=== PATIENT | female | born 1960 | race Caucasian/White ===

== ENCOUNTER 2018-10-13 22:40 | Observation (INO) | payer MEDICARE, MEDICAID ==
[2018-10-14 00:33] LABS: CKMB 4.1 ng/mL (0-6.6)
[2018-10-14 03:12] LABS: Troponin I 0.063 ng/mL (< 0.028)
[2018-10-14 04:12] VITALS: BMI 30.1
[2018-10-14 06:40] LABS: Troponin I 0.062 ng/mL (< 0.028)
[2018-10-14] MEDS ORDERED: Acetaminophen 325 MG TAB PO PRN (08:42)
[2018-10-14] MEDS ORDERED: Acetaminophen 650 MG Suppository PR PRN (08:42)
[2018-10-14] MEDS ORDERED: Sodium Chloride 0.9% 1,000 ML IV SCH (08:45)
[2018-10-14] MEDS ORDERED: Levothyroxine Sodium 50 MCG TAB PO SCH (09:00)
[2018-10-14] MEDS ORDERED: Aspirin Chewable 81 MG TAB PO SCH (09:00)
[2018-10-14] MEDS ORDERED: VALPROIC ACID 125 MG PO SCH (09:00)
[2018-10-14 10:19] LABS: Mean Corpuscular HGB CONC 32.6 g/dL (32.0-36.0); Mean Corpuscular Hemoglobin 33.9 pg (27.0-31.0); Mean Platelet Volume 9.3 fL (7.4-10.4); Platelet Count 91 thou/uL (130-400); RBC Distribution Width 14.2 % (11.5-14.5); Red Blood Cell (RBC) Count 4.73 mill/uL (4.20-5.40)
[2018-10-14 10:33] LABS: #Eosinphils 0.2 thou/uL (0.0-0.7); #Lymphocytes 1.3 thou/uL (1.20-3.40); #Monocytes 0.4 thou/uL (0.11-0.59); %Basophils 0.6 % (0.0-1.0); %Eosinophils 4.5 % (0.0-10.0); %Lymphocytes 25.1 % (21.0-51.0); %Monocytes 8.6 % (0.0-10.0); %Neutrophils 61.1 % (42.0-75.0); MDiff Complete? YES; Macrocytosis SLIGHT = 6-15 cells (100X) (0-5/hpf); Platelet Morphology Comment Appears Decreased; Polychromasia SLIGHT = 2-3 cells (100X) (0-2/hpf)
[2018-10-14 10:34] LABS: Anion Gap 11 mmol/L (10-20); BUN (Urea Nitrogen) 21 mg/dL (9.8-20.1); Calc. Creatinine Clearance 57 mL/min (70-130); Calcium 8.9 mg/dL (7.8-10.44); Carbon Dioxide 28 mmol/L (22-29); Chloride 109 mmol/L (98-107); Estimated GFR-MDRD 48; Glucose 99 mg/dL (70-105); Magnesium 2.2 mg/dL (1.6-2.6); Potassium 4.1 mmol/L (3.5-5.1); Sodium 144 mmol/L (136-145)
[2018-10-14] MEDS ORDERED: Valproate Sodium 250 mg/5 ml UD Cup PO SCH ×3 (11:00→21:00)
[2018-10-14] MEDS ORDERED: Levothyroxine Sodium 125 MCG TAB PO SCH (11:30)
[2018-10-14 12:00] LABS: CK (CPK) 140 U/L (29-168); Valproic Acid (Depakene) Less than 12.5 ug/mL (50.0-100.0)
[2018-10-14 12:24] LABS: Lactic Acid 1.9 mmol/L (0.5-2.2)
[2018-10-14 15:41] VITALS: BP 105/59; TEMP 98.5
--- NOTE | 2018-10-14 16:11 | SS ---
DATE OF ADMISSION: 10/14/2018 DATE OF DISCHARGE: 10/14/2018 This is MARISSA Nelson dictating a report for Carroll Loving MD. REASON FOR ADMISSION: Altered mental status. HOSPITAL COURSE: Ms. Flores is a 58-year-old woman, who has been brought her from the alf with a history of Down syndrome, who is noncommunicative at baseline and according to her family, was brought into the emergency department due to altered mental status. Per the family, she did not have any lethargy or loss of consciousness. No episodes of unresponsiveness or fevers. She has been in her usual state of health; however, the family feels it is possible she is being taking care of the new nurse, whose is not aware of her uncommunicative state at baseline. Since presenting to the ED, she has not exhibited any signs of distress. She has not had any clinical signs of infection. She has undergone laboratory studies, which were unremarkable except for mildly elevated troponins. Serial troponins done in the ER seemed to be stable and possibly associated with her chronic kidney disease. The family do confirm she was diagnosed with renal insufficiency many years ago and advised not to take anti-inflammatory such as naproxen. The patient had an ECG done in the ER, which showed sinus bradycardia with a heart rate of 56. A chest x-ray was done showing stable chronic lung changes. Urinalysis also done are negative. Her vital signs have remained stable throughout her hospital stay. She does have a history of hypothyroidism and on high dose of levothyroxine 250 mcg daily, therefore thyroid function studies were checked. She missed her valproic acid yesterday evening and this morning and when the valproic acid checked with morning labs showed a level less than 12.5. This may be due to the missed doses. Therefore, it is recommended to repeat the levels in 3 to 4 days. The patient has been seen and evaluated by Dr. Loving, who agrees with plans for discharge home today. Given the fact that she is at baseline, without complaints and without any signs or symptoms of underlying infection with unremarkable restorations. Family is very happy with plans for discharge home. PAST MEDICAL HISTORY: 1. Down's. 2. Mitral valve prolapse. 3. Hypothyroidism: 4. Chronic renal insufficiency. 5. Gastric ulcer. 6. Hearing loss. 7. GERD. 8. Osteoarthritis. PAST SURGICAL HISTORY: None. SOCIAL HISTORY: The patient is noncommunicative at baseline. She lives at a long-term care facility. Denies any alcohol use or illicit drug use. No history of smoking. PHYSICAL EXAMINATION: GENERAL: The patient appears comfortable and is resting. No acute distress. She smiles and giggles at times but is noncommunicative. VITAL SIGNS: Temperature 97.5, pulse of 57, respirations 18, O2 sat 99% by nasal cannula, and blood pressure 100/68. HEENT: Normocephalic and atraumatic. Pupils are equal, round, and reactive to light. Sclerae are without icterus. Oropharynx clear. NECK: Supple. No lymphadenopathy. LUNGS: Clear bilaterally. CARDIAC: Regular rhythm. ABDOMEN: Soft. No apparent tenderness. No guarding or rigidity. EXTREMITIES: With hyperpigmentation in bilateral lower legs, right worse than the left, with evidence of stasis. No edema. There is an anterior tibial wound on the right anterior lower leg. No signs of cellulitis or infection. Clear wound dressing in place. NEUROLOGIC: Alert and smiling at times, responding to verbal stimuli, but not able to communicate. LABORATORY DATA: White blood count 5.9, hemoglobin 16, hematocrit 49.2, and platelets . Sodium 144, potassium 4.1, chloride 109, BUN 21, creatinine 1.15, GFR 48, and lactic acid 1.9. CK-MB 4.1. BNP 617.1. Free T4 of 0.89. TSH . Valproic acid less than 12.5. LFTs done on initial presentation unremarkable with normal lipase. IMAGING DATA: Chest x-ray done on 10/13/2018, stable chronic lung changes with linear interstitial changes at the bases. No new intrathoracic process present. PROCEDURES: None. DISCHARGE MEDICATIONS: The patient to resume normal home medications. No new medications started. CONDITION: Stable at discharge. DIET: The patient passed dysplasia screening at bedside and may resume her on heart healthy pureed diet. ACTIVITY: As per baseline. FOLLOWUP: The patient to be seen by her primary care physician within 1 week. She will require repeat laboratory studies to ensure renal function not worsened and to recheck valproic acid and ensure within therapeutic range. PCP to monitor and manage her hypothyroidism. Wound care to continue managing her right anterior tibial wound. DISPOSITION: The patient is medically cleared for discharge back to alf today on 10/14/2018. The patient was seen by Dr. Dr. Loving, who agrees with the plan of care as described above. Job ID: [id number]
[2018-10-15] MEDS ORDERED: Levothyroxine Sodium 125 MCG TAB PO SCH (06:00)
[2018-10-15] MEDS ORDERED: Levothyroxine Sodium 50 MCG TAB PO SCH (06:00)
[2018-10-15] MEDS ORDERED: Levothyroxine Sodium 100 MCG TAB PO SCH (06:00)
[2018-10-15] MEDS ORDERED: Non-Formulary Item 1 EACH (Levothyroxine Sodium [Synthroid] 200 MCG) PO SCH (07:30)
== END 2018-10-14 17:08 ==
LOC: ERS 22:40 → 2SE 10-14 02:56
PROVIDERS: ADMIT Internal Medicine; ATTEND Internal Medicine
DX: R41.82 Altered mental status, unspecified (principal); Q90.9 Down syndrome, unspecified; E03.9 Hypothyroidism, unspecified; I34.1 Nonrheumatic mitral (valve) prolapse; N18.9 Chronic kidney disease, unspecified; K21.9 Gastro-esophageal reflux disease without esophagitis; M19.90 Unspecified osteoarthritis, unspecified site; Z79.82 Long term (current) use of aspirin; Z79.899 Other long term (current) drug therapy; Z88.6 Allergy status to analgesic agent
CPT/HCPCS: 80048; 80164; 82550; 82553; 83605; 83735; 83880; 84439; 84443; 84484 ×3; 85025; 93005; 99285; G0378 ×2; 36415

== ENCOUNTER 2018-11-23 17:30 | Inpatient (IN) | payer MEDICARE, MEDICAID ==
[~2018-11-23 17:30] MED LIST: ISOVUE-370 76%-LOCM 1 ML ONE
[2018-11-23] MEDS ORDERED: Clopidogrel Bisulfate 75 MG TAB ONE (17:47)
--- NOTE | 2018-11-23 20:30 | CT ---
CTA CHEST WITH CONTRAST: 11/23/18 Axial tomograms obtained through the chest following a pulmonary angio protocol with multiplanar thomas nstruction and 3D post processing. INDICATIONS: New onset CHF. Hypotension and low O2 saturation. Assess for pulmonary embolus. FINDINGS: Pulmonary arteries are adequately opacified. There is no evidence of pulmonary embolus. Thoracic aort a is unremarkable. There is small right pleural effusion with right basilar atelectasis. Cardiomegaly and mild vascular congestion. Hazy ground glass alveolar opacity throughout both lungs suggests mild edema pattern. Mediastinum otherwise unremarkable. IMPRESSION: 1. No evidence of pulmonary embolus. 2. Right pleural effusion and right basilar atelectasis. 3. Cardiomegaly with vascular congestion. Diffuse ground glass opacity bilaterally suggests mild edema. POS: SHASHANKH
[2018-11-23] MEDS ORDERED: Senokot S 8.6-50 MG TAB PO PRN (21:37)
[2018-11-23] MEDS ORDERED: Non-Formulary Item 1 EACH (Ranitidine Hcl [Acid Reducer] 150 MG) PO PRN (21:39)
[2018-11-24 00:36] VITALS: BMI 28.7
--- NOTE | 2018-11-24 04:17 | HP ---
CHIEF COMPLAINT: Possible transient hypotension versus hypoxia. HISTORY OF PRESENT ILLNESS: The patient is a 58-year-old female with a history of Down's, who lives in a senior care and is nonverbal at baseline, who presented to the hospital with multiple symptoms, possible hypotension versus hypoxia. However, upon reviewing the ER records, she was not really hypotensive. Her baseline is normally in the 90s to 100 systolic and she was never below 95% on room air. According to the paperwork, it was noted that the patient recently was treated with pneumonia. She did have a chest x-ray that was done on 11/22, the reading indicated bilateral interstitial inflammatory changes. At that time, I did not see CBC that was performed with this x-ray. The patient is unable to provide me any information. There is no family around her. Her sister had left and unable to provide any history. I will try and reach her at her cellphone number. PAST MEDICAL HISTORY: 1. The patient has history of Down's. 2. Mitral valve prolapse. 3. Hypothyroidism. 4. Chronic renal insufficiency. 5. Gastric ulcers. 6. Hearing loss. 7. GERD. 8. Osteoarthritis. PAST SURGICAL HISTORY: Denies. This is per documentation. ALLERGIES: ALLERGIC TO IBUPROFEN AND NAPROXEN. MEDICATIONS: 1. She is on levothyroxine daily. 2. She is also on Ativan 0.5 daily p.r.n. 3. MiraLAX 17 g daily. 4. Ranitidine 150 p.o. daily. 5. Valproic acid 125 at noon and 250 q.p.m. 6. She is on 81 mg of aspirin. 7. Tylenol 650 as needed. SOCIAL HISTORY: She is currently unable to give me any details. However, according to the nursing staff, she is currently a full code per the sister. No history of alcohol, drug, or smoking history. This is per documentation. REVIEW OF SYSTEMS: Unable to perform. The patient is unable to provide that for me. PHYSICAL EXAMINATION: VITAL SIGNS: Are as of the following; temperature of 97.7, pulse 73, respirations 16, oxygen saturation 94% on room air, and her blood pressure is 105/59. GENERAL: She is awake, alert, unable to verbalize. HEENT: Normocephalic and atraumatic. No lymphadenopathy noted. CV: S1 and S2 present. No murmurs, rubs, or gallops. LUNGS: She has mild crackles to bilateral lower lung bases. ABDOMEN: Soft and bowel sounds are present x2. EXTREMITIES: She does have a small decubitus to her right and left heel and she does have some atrophic changes to her lower extremity. NEUROLOGIC: Neurovascular paul, unsure if the patient is able to walk. The patient does move her upper extremities without any issues and her lower extremities. SKIN: As I mentioned, she does have some decubitus to her bilateral heels. LABORATORY DATA: WBCs of 9.2, hemoglobin of 12.8, hematocrit of 39.8, and platelets of 175. Chemistry; sodium of 133, potassium of 4.4, BUN of 21, and creatinine 1.23. Her BNP was 1199. Her TSH was 0.061. Troponin was negative. DIAGNOSTIC DATA: She did have a CTA, which did not indicate any acute pneumonia. It just indicated some mild congestion, cardiomegaly, and vascular congestion. Diffuse ground-glass opacities suggesting mild edema and some atelectasis. She also had a CT brain, which did not indicate any acute processes; however, did indicate clinically correlation of normal-pressure hydrocephalus. ASSESSMENT AND PLAN: The patient is a very pleasant 58-year-old female, who comes into the hospital with multiple complaints. 1. Possible mild congestive heart failure, unknown type. The patient has never had an echocardiogram. I will order an echocardiogram. Chest CT scan does indicate vascular congestion and I will go ahead and start her on some Lasix 40 mg daily. I do not see any signs of pneumonia. She does not have an elevated white count and the patient currently is afebrile. She did receive Levaquin and vancomycin. I will check a procalcitonin level on her. We will continue to monitor. 2. Mild acute kidney injury. It appears to be the patient's baseline. It seems that patient most likely has chronic kidney disease. We will continue to monitor. May consider getting a renal ultrasound if needed if her creatinine worsens. 3. History of seizure disorders. We will continue her valproic acid. I will also check her valproic level in the morning. 4. History of hypothyroidism. Her TSH was 0.0631 and her free T4 appeared to be 2.19. Her levothyroxine from daily due to her low TSH. 5. Mild elevated troponins. Her troponin was mildly elevated at 0.040; however, that trended down. This could be secondary to some congestion. We will continue to monitor. Unable to assess if the patient is having some chest pain. 6. Again, the patient initially presented and was treated for pneumonia. However, I do not see any signs of pneumonia, especially with her CAT scan not showing any pulmonary infiltrates nor does she have a white count. Further history to be obtained from the patient's sister. However, at this time, I will hold off on her antibiotics and treat her for possible heart failure and also get an echocardiogram. Job ID: [id number]
[2018-11-24 05:58] LABS: Anion Gap 12 mmol/L (10-20); BUN (Urea Nitrogen) 17 mg/dL (9.8-20.1); Calc. Creatinine Clearance 63 mL/min (70-130); Calcium 8.2 mg/dL (7.8-10.44); Carbon Dioxide 25 mmol/L (22-29); Chloride 102 mmol/L (98-107); Estimated GFR-MDRD 55; Glucose 90 mg/dL (70-105); Sodium 135 mmol/L (136-145)
[2018-11-24] MEDS ORDERED: Levothyroxine Sodium 50 MCG TAB PO SCH (06:00)
[2018-11-24] MEDS ORDERED: Levothyroxine Sodium 25 MCG TAB PO SCH (06:00)
[2018-11-24] MEDS ORDERED: Levothyroxine Sodium 125 MCG TAB PO SCH (06:00)
[2018-11-24 06:09] LABS: Troponin I 0.028 ng/mL (< 0.028)
[2018-11-24 06:29] LABS: #Basophils 0.1 thou/uL (0.0-0.2); #Eosinphils 0.1 thou/uL (0.0-0.7); #Lymphocytes 0.7 thou/uL (1.20-3.40); #Monocytes 0.9 thou/uL (0.11-0.59); #Neutrophils 5.8 thou/uL (1.40-6.50); %Basophils 0.7 % (0.0-1.0); %Lymphocytes 9.4 % (21.0-51.0); %Monocytes 11.5 % (0.0-10.0); %Neutrophils 76.4 % (42.0-75.0); Hemoglobin 12.6 g/dL (12.0-16.0); Mean Corpuscular HGB CONC 32.2 g/dL (32.0-36.0); Mean Corpuscular Hemoglobin 34.2 pg (27.0-31.0); Mean Platelet Volume 8.6 fL (7.4-10.4); Platelet Count 165 thou/uL (130-400); RBC Distribution Width 13.7 % (11.5-14.5); Red Blood Cell (RBC) Count 3.69 mill/uL (4.20-5.40); White Blood Cell (WBC) Count 7.6 thou/uL (4.8-10.8)
[2018-11-24] MEDS ORDERED: LEVOTHYROXINE SODIUM PO SCH (07:30)
[2018-11-24] MEDS ORDERED: Furosemide 40 MG/4 ML VIAL SLOW IVP SCH (09:00)
[2018-11-24] MEDS ORDERED: Enoxaparin Sodium 40 MG/0.4 ML SYRINGE SC SCH (09:00)
[2018-11-24] MEDS: Polyethylene Glycol 3350 17 GM Packet PO SCH (09:04)
[2018-11-24] MEDS: Heparin 5,000 UNITS/ML VIAL SC SCH ×3 (09:09→21:31)
--- NOTE | 2018-11-24 10:58 | PDOC.PN ---
- Subjective Encounter Start Date: 11/24/18 Encounter Start Time: 07:30 -: old records requested/rev Patient seen and examined. No overnight events, pt is unable to provide any history, - Objective Resuscitation Status - Order Detail: 11/23/18 23:28 Resuscitation Status Routine Resuscitation Status: FULL: Full Resuscitation MAR Reviewed: Yes Vital Signs & Weight: Vital Signs (12 hours) Temp Pulse Resp BP Pulse Ox 11/24/18 07:40 94 L 11/24/18 07:33 97.8 F 84 16 94/50 L 94 L 11/24/18 04:00 97.5 F L 74 16 91/43 L 96 11/24/18 00:00 97.7 F 73 16 76/48 L 94 L Weight Weight 147 lb I&O: 11/23/18 11/24/18 11/25/18 06:59 06:59 06:59 Output Total 350 Balance -350 Result Diagrams: 11/24/18 05:19 11/24/18 05:19 Radiology Reviewed by me: Yes (chest xray and CTA reviewed) EKG Reviewed by me: Yes (nsr) Phys Exam - Physical Examination Constitutional: NAD HEENT: PERRLA, sclera anicteric dry MM Neck: no JVD, supple Respiratory: no wheezing, no rhonchi coarse sound+ Cardiovascular: RRR, no significant murmur, no rub Gastrointestinal: soft, non-tender, no distention, positive bowel sounds Musculoskeletal: no edema, pulses present chronic skin changes Lymphatic: no nodes Skin: no rash, normal turgor Dx/Plan (1) GIBSON (acute kidney injury) Code(s): N17.9 - ACUTE KIDNEY FAILURE, UNSPECIFIED Status: Acute (2) Elevated d-dimer Code(s): R79.89 - OTHER SPECIFIED ABNORMAL FINDINGS OF BLOOD CHEMISTRY Status : Acute Comment: with negative CTA chest, no PE (3) Elevated troponin Code(s): R74.8 - ABNORMAL LEVELS OF OTHER SERUM ENZYMES Status: Acute Comment: likely related with demand ischemia (4) New onset of congestive heart failure Code(s): I50.9 - HEART FAILURE, UNSPECIFIED Status: Acute Comment: suspecting diastolic, with pulmonary congestion, elevated BNP and troponin (5) Down's syndrome Code(s): Q90.9 - DOWN SYNDROME, UNSPECIFIED Status: Chronic Comment: with mental retardation (6) Hypothyroidism Code(s): E03.9 - HYPOTHYROIDISM, UNSPECIFIED Status: Chronic Comment: with current itrogenic hyperthyroidism (7) Macrocytosis Code(s): D75.89 - OTHER SPECIFIED DISEASES OF BLOOD AND BLOOD-FORMING ORGANS Status: Chronic Comment: without anemia (8) Seizure disorder Code(s): G40.909 - EPILEPSY, UNSP, NOT INTRACTABLE, WITHOUT STATUS EPILEPTICUS Status: Chronic - Plan cont current plan of care, plan discussed w/ family, continue antibiotics, speech therapy * echo will be done to determine type of CHF * I spoke with sister and updated plan * add rocephin * hold levothyroixine for now * medication reviewed as below * symptomatic treatment * repeat labs tomorrow * monitor vitals. Review of Systems - Review of Systems Other: unable to review due to mental retardation - Medications/Allergies Allergies/Adverse Reactions: Allergies Allergy/AdvReac Type Severity Reaction Status Date / Time ibuprofen [From Motrin] Allergy Verified 10/14/18 08:25 naproxen Allergy Verified 10/14/18 08:25 Medications: Current Medications Acetaminophen (Tylenol) 650 mg PO Q4H PRN PRN Reason: Headache/Fever/Mild Pain (1-3) Albuterol/Ipratropium (Duoneb) 3 ml NEB D1TI-GC PRN PRN Reason: SOB &/or Wheezing Aspirin (Aspirin Chewable) 81 mg PO DAILY OLEKSANDR Famotidine (Pepcid) 20 mg PO DAILYPRN PRN PRN Reason: Dyspepsia Furosemide (Lasix) 40 mg SLOW IVP DAILY [facility] Last Admin: 11/24/18 09:09 Dose: 40 mg Heparin Sodium (Porcine) (Heparin) 5,000 units SC TID [facility] Last Admin: 11/24/18 09:09 Dose: 5,000 units Lorazepam (Ativan) 0.5 mg PO DAILYPRN PRN PRN Reason: Anxiety Polyethylene Glycol (Miralax) 17 gm PO DAILY [facility] Last Admin: 11/24/18 09:04 Dose: Not Given Senna/Docusate Sodium (Senokot S) 2 tab PO BIDPRN PRN PRN Reason: Constipation Valproic Acid (Depakene Liquid) 125 mg PO 1200 OLEKSANDR Valproic Acid (Depakene Liquid) 250 mg PO QPM [facility]
[2018-11-24] MEDS: cefTRIAXone\\ROCEPHIN 1 GM in Sodium Chloride 0.9% 100 ML IVPB SCH (12:45)
[2018-11-24] MEDS: Famotidine 20 MG TAB PO PRN (12:57)
[2018-11-24] MEDS: Valproate Sodium 250 mg/5 ml UD Cup PO SCH ×2 (12:57→21:40)
[2018-11-24] MEDS: Aspirin Chewable 81 MG TAB PO SCH (12:57)
[2018-11-24] MEDS: Acetaminophen 325 MG TAB PO PRN (17:16)
[2018-11-24] MEDS: Lorazepam 0.5 MG TAB PO PRN (17:16)
[2018-11-25 05:23] LABS: #Eosinphils 0.1 thou/uL (0.0-0.7); #Lymphocytes 1.3 thou/uL (1.20-3.40); #Monocytes 0.5 thou/uL (0.11-0.59); #Neutrophils 2.8 thou/uL (1.40-6.50); %Basophils 0.5 % (0.0-1.0); %Eosinophils 2.9 % (0.0-10.0); %Lymphocytes 26.7 % (21.0-51.0); %Monocytes 10.3 % (0.0-10.0); %Neutrophils 59.6 % (42.0-75.0); Hemoglobin 13.2 g/dL (12.0-16.0); Mean Corpuscular HGB CONC 32.6 g/dL (32.0-36.0); Mean Corpuscular Hemoglobin 33.9 pg (27.0-31.0); Mean Platelet Volume 8.8 fL (7.4-10.4); Platelet Count 161 thou/uL (130-400); RBC Distribution Width 13.7 % (11.5-14.5); Red Blood Cell (RBC) Count 3.89 mill/uL (4.20-5.40); White Blood Cell (WBC) Count 4.7 thou/uL (4.8-10.8)
[2018-11-25 05:42] LABS: Anion Gap 13 mmol/L (10-20); BUN (Urea Nitrogen) 17 mg/dL (9.8-20.1); Calc. Creatinine Clearance 60 mL/min (70-130); Calcium 8.3 mg/dL (7.8-10.44); Carbon Dioxide 24 mmol/L (22-29); Chloride 103 mmol/L (98-107); Estimated GFR-MDRD 53; Glucose 86 mg/dL (70-105); Potassium 3.8 mmol/L (3.5-5.1); Sodium 136 mmol/L (136-145); Uric Acid 8.7 mg/dL (2.6-6.0)
[2018-11-25] MEDS: Acetaminophen 325 MG TAB PO PRN ×2 (06:28→21:55)
[2018-11-25 08:10] LABS: Anion Gap 13 mmol/L (10-20); BUN (Urea Nitrogen) 18 mg/dL (9.8-20.1); Calc. Creatinine Clearance 55 mL/min (70-130); Calcium 8.7 mg/dL (7.8-10.44); Carbon Dioxide 29 mmol/L (22-29); Chloride 101 mmol/L (98-107); Estimated GFR-MDRD 48; Glucose 95 mg/dL (70-105); Potassium 3.8 mmol/L (3.5-5.1); Sodium 139 mmol/L (136-145)
[2018-11-25] MEDS: Polyethylene Glycol 3350 17 GM Packet PO SCH (08:54)
[2018-11-25] MEDS: Aspirin Chewable 81 MG TAB PO SCH (08:59)
[2018-11-25] MEDS ORDERED: Furosemide 20 MG/2 ML VIAL SLOW IVP SCH (09:00)
[2018-11-25] MEDS: Heparin 5,000 UNITS/ML VIAL SC SCH ×3 (09:02→21:55)
[2018-11-25] MEDS: cefTRIAXone\\ROCEPHIN 1 GM in Sodium Chloride 0.9% 100 ML IVPB SCH (12:37)
[2018-11-25] MEDS: Famotidine 20 MG TAB PO PRN (12:38)
[2018-11-25] MEDS: Valproate Sodium 250 mg/5 ml UD Cup PO SCH ×2 (12:41→21:55)
--- NOTE | 2018-11-25 13:00 | PDOC.PN ---
- Subjective Encounter Start Date: 11/25/18 Encounter Start Time: 12:54 Patient seen and examined, family at bedside, no new issues. - Objective Resuscitation Status - Order Detail: 11/23/18 23:28 Resuscitation Status Routine Resuscitation Status: DNAR: NO Resuscitation Discussed with: Sister Vital Signs & Weight: Vital Signs (12 hours) Temp Pulse Resp BP Pulse Ox 11/25/18 11:47 99.3 F 73 17 84/79 L 96 11/25/18 07:46 98 F 82 17 111/75 98 11/25/18 04:00 98.0 F 78 19 101/56 L 92 L 11/25/18 02:18 92 L Weight Admit Weight 147 lb Weight 147 lb I&O: 11/24/18 11/25/18 11/26/18 06:59 06:59 06:59 Output Total 350 1750 Balance -350 -1750 Result Diagrams: 11/25/18 04:46 11/25/18 07:34 Phys Exam - Physical Examination Constitutional: NAD HEENT: PERRLA, moist MMs Neck: no nodes, no JVD, supple Respiratory: no wheezing, no rales, no rhonchi gurgling sound when she coughs Cardiovascular: RRR, no rub systolic murmur Gastrointestinal: soft, non-tender, no distention Musculoskeletal: no edema, pulses present Dx/Plan (1) GIBSON (acute kidney injury) Code(s): N17.9 - ACUTE KIDNEY FAILURE, UNSPECIFIED Status: Acute (2) New onset of congestive heart failure Code(s): I50.9 - HEART FAILURE, UNSPECIFIED Status: Acute Comment: suspecting diastolic, with pulmonary congestion, elevated BNP and troponin (3) Down's syndrome Code(s): Q90.9 - DOWN SYNDROME, UNSPECIFIED Status: Chronic Comment: with mental retardation (4) Hypothyroidism Code(s): E03.9 - HYPOTHYROIDISM, UNSPECIFIED Status: Chronic Comment: with current itrogenic hyperthyroidism (5) Seizure disorder Code(s): G40.909 - EPILEPSY, UNSP, NOT INTRACTABLE, WITHOUT STATUS EPILEPTICUS Status: Chronic - Plan * patient not eating, overall prognosis appears poor if she does not resume oral diet * PEG tube placement options discussed, I do not believe she would be a good candidate for a PEG as she is likely to pull the tube out * family agrees, they stated that they'll talk amongst themselves and pursue hospice care after discussing, patient is a DNR * the patient had a drop of BP to SBP in 70s, will bolus 250cc for now, SBP was 90s after 250cc bolus, will DC lasix for now * repeat CXR in AM * poor prognosis * case and plan d/w patient's family at length, they understood and agreed with this plan.
[2018-11-25] MEDS: Lorazepam 0.5 MG TAB PO PRN (21:56)
[2018-11-26 04:51] LABS: #Basophils 0.1 thou/uL (0.0-0.2); #Eosinphils 0.2 thou/uL (0.0-0.7); #Lymphocytes 1.3 thou/uL (1.20-3.40); #Monocytes 0.4 thou/uL (0.11-0.59); %Basophils 1.4 % (0.0-1.0); %Eosinophils 4.9 % (0.0-10.0); %Lymphocytes 32.6 % (21.0-51.0); %Monocytes 10.4 % (0.0-10.0); %Neutrophils 50.7 % (42.0-75.0); Mean Corpuscular HGB CONC 32.8 g/dL (32.0-36.0); Mean Corpuscular Hemoglobin 33.9 pg (27.0-31.0); Mean Platelet Volume 8.7 fL (7.4-10.4); Platelet Count 158 thou/uL (130-400); RBC Distribution Width 13.5 % (11.5-14.5); Red Blood Cell (RBC) Count 3.84 mill/uL (4.20-5.40)
[2018-11-26 05:08] LABS: Anion Gap 12 mmol/L (10-20); BUN (Urea Nitrogen) 17 mg/dL (9.8-20.1); Calc. Creatinine Clearance 64 mL/min (70-130); Calcium 8.2 mg/dL (7.8-10.44); Carbon Dioxide 27 mmol/L (22-29); Chloride 102 mmol/L (98-107); Estimated GFR-MDRD 56; Glucose 91 mg/dL (70-105); Potassium 3.3 mmol/L (3.5-5.1); Sodium 138 mmol/L (136-145)
--- NOTE | 2018-11-26 09:31 | RAD ---
CHEST 1 VIEW: HISTORY: Cough and shortness of breath. COMPARISON: 10/13/2018. FINDINGS: Portable semiupright chest demonstrates an enlarged cardiac silhouette. The pulmonary vessels are sl ightly prominent. A small right-sided effusion is suspected. No pneumothorax. Patchy interstitial opacities due to edema or infiltrate. IMPRESSION: 1. Interstitial prominence due to edema or infiltrate. Continued surveillance. 2. Congestive heart failure. POS: OFF
[2018-11-26] MEDS: Heparin 5,000 UNITS/ML VIAL SC SCH ×3 (10:15→20:43)
[2018-11-26] MEDS: Polyethylene Glycol 3350 17 GM Packet PO SCH (10:16)
[2018-11-26] MEDS: Aspirin Chewable 81 MG TAB PO SCH (10:16)
[2018-11-26] MEDS: Furosemide 20 MG TAB PO SCH ×2 (10:39→11:51)
[2018-11-26] MEDS: cefTRIAXone\\ROCEPHIN 1 GM in Sodium Chloride 0.9% 100 ML IVPB SCH (12:14)
[2018-11-26] MEDS: Valproate Sodium 250 mg/5 ml UD Cup PO SCH ×2 (12:24→20:43)
--- NOTE | 2018-11-26 13:45 | PDOC.PN ---
- Subjective Encounter Start Date: 11/26/18 Encounter Start Time: 13:42 Patient seen and examined, no new issues. - Objective Resuscitation Status - Order Detail: 11/23/18 23:28 Resuscitation Status Routine Resuscitation Status: DNAR: NO Resuscitation Discussed with: Sister Vital Signs & Weight: Vital Signs (12 hours) Temp Pulse Resp BP Pulse Ox 11/26/18 11:53 98 F 70 17 101/63 92 L 11/26/18 10:20 97.8 F 75 12 118/69 90 L 11/26/18 04:00 97.3 F L 88 16 96/63 96 Weight Admit Weight 147 lb Weight 147 lb I&O: 11/25/18 11/26/18 11/27/18 06:59 06:59 06:59 Intake Total 555 Output Total 1750 500 Balance -1750 55 Result Diagrams: 11/26/18 04:30 11/26/18 04:30 Phys Exam - Physical Examination Constitutional: NAD HEENT: PERRLA Neck: no nodes, no JVD Respiratory: no wheezing, no rales, no rhonchi Cardiovascular: RRR, no significant murmur, no rub Gastrointestinal: soft, non-tender, no distention Musculoskeletal: no edema, pulses present Dx/Plan (1) GIBSON (acute kidney injury) Code(s): N17.9 - ACUTE KIDNEY FAILURE, UNSPECIFIED Status: Acute (2) New onset of congestive heart failure Code(s): I50.9 - HEART FAILURE, UNSPECIFIED Status: Acute Comment: suspecting diastolic, with pulmonary congestion, elevated BNP and troponin (3) Down's syndrome Code(s): Q90.9 - DOWN SYNDROME, UNSPECIFIED Status: Chronic Comment: with mental retardation (4) Hypothyroidism Code(s): E03.9 - HYPOTHYROIDISM, UNSPECIFIED Status: Chronic Comment: with current itrogenic hyperthyroidism (5) Seizure disorder Code(s): G40.909 - EPILEPSY, UNSP, NOT INTRACTABLE, WITHOUT STATUS EPILEPTICUS Status: Chronic - Plan * DC lasix for now * long discussion held with family, will place consult to CM for hospice evaluation * family to decide in AM regarding pursuing hospice care or not, would like to give it one more day * do not want PEG tube * cont current plan otherwise, no changes * case and plan d/w patient's family at length, they understood and agreed with this plan, overall prognosis is poor
[2018-11-26] MEDS: Sodium Chloride 0.45% 1,000 ML IV SCH (18:42)
[2018-11-26] MEDS: Acetaminophen 325 MG TAB PO PRN (20:44)
[2018-11-27 03:09] LABS: Hemoglobin 12.7 g/dL (12.0-16.0); Mean Corpuscular HGB CONC 32.8 g/dL (32.0-36.0); Mean Corpuscular Hemoglobin 34.8 pg (27.0-31.0); Platelet Count 149 thou/uL (130-400); RBC Distribution Width 14.8 % (11.5-14.5); Red Blood Cell (RBC) Count 3.64 mill/uL (4.20-5.40); White Blood Cell (WBC) Count 3.9 thou/uL (4.8-10.8)
[2018-11-27 03:19] LABS: Anion Gap 11 mmol/L (10-20); BUN (Urea Nitrogen) 13 mg/dL (9.8-20.1); Calc. Creatinine Clearance 77 mL/min (70-130); Calcium 8.4 mg/dL (7.8-10.44); Carbon Dioxide 25 mmol/L (22-29); Chloride 104 mmol/L (98-107); Estimated GFR-MDRD 70; Glucose 92 mg/dL (70-105); Potassium 3.3 mmol/L (3.5-5.1); Sodium 137 mmol/L (136-145)
[2018-11-27 03:47] LABS: Band 4 % (5-11); Eosinophils 1 % (0-10); Lymphocytes 33 % (21-51); MDiff Complete? YES; Macrocytosis SLIGHT = 6-15 cells (100X) (0-5/hpf); Metamyelocyte 1 % (0-0); Monocytes 7 % (0-10); Neutrophil 54 % (42-75); Nucleated RBC 1 % (0); Platelet Morphology Comment Appears Adequate
[2018-11-27] MEDS: Sodium Chloride 0.45% 1,000 ML IV SCH (09:14)
[2018-11-27] MEDS: Polyethylene Glycol 3350 17 GM Packet PO SCH (09:15)
[2018-11-27] MEDS: Heparin 5,000 UNITS/ML VIAL SC SCH ×3 (09:15→23:22)
[2018-11-27] MEDS: Aspirin Chewable 81 MG TAB PO SCH (09:15)
[2018-11-27] MEDS: Famotidine 20 MG TAB PO PRN (09:16)
[2018-11-27] MEDS ORDERED: Artificial Tear Sol 15 ML BOT EA EYE PRN (10:21)
[2018-11-27] MEDS: Valproate Sodium 250 mg/5 ml UD Cup PO SCH ×2 (11:39→23:22)
[2018-11-27] MEDS: cefTRIAXone\\ROCEPHIN 1 GM in Sodium Chloride 0.9% 100 ML IVPB SCH (11:39)
--- NOTE | 2018-11-27 12:43 | PDOC.PN ---
- Subjective Encounter Start Date: 11/27/18 Encounter Start Time: 12:37 Patient seen and examined, no new issues or complaints, family at bedside, all questions answered. - Objective Resuscitation Status - Order Detail: 11/23/18 23:28 Resuscitation Status Routine Resuscitation Status: DNAR: NO Resuscitation Discussed with: Sister Vital Signs & Weight: Vital Signs (12 hours) Temp Pulse Resp BP Pulse Ox 11/27/18 11:12 97.7 F 69 20 101/50 L 100 11/27/18 10:56 90/55 L 11/27/18 09:15 98 11/27/18 07:44 96.4 F L 65 16 98 11/27/18 04:18 97.7 F 11/27/18 03:26 96.1 F L 73 16 107/67 96 Weight Admit Weight 147 lb Weight 147 lb I&O: 11/26/18 11/27/18 11/28/18 06:59 06:59 06:59 Intake Total 555 470 Output Total 500 80 100 Balance 55 390 -100 Result Diagrams: 11/27/18 02:41 11/27/18 02:41 Phys Exam - Physical Examination Constitutional: NAD HEENT: PERRLA, moist MMs Neck: no nodes, no JVD Respiratory: no wheezing, no rales, no rhonchi, clear to auscultation bilateral Cardiovascular: RRR, no significant murmur, no rub Gastrointestinal: soft, non-tender, no distention Dx/Plan (1) GIBSON (acute kidney injury) Code(s): N17.9 - ACUTE KIDNEY FAILURE, UNSPECIFIED Status: Acute (2) New onset of congestive heart failure Code(s): I50.9 - HEART FAILURE, UNSPECIFIED Status: Acute Comment: suspecting diastolic, with pulmonary congestion, elevated BNP and troponin (3) Down's syndrome Code(s): Q90.9 - DOWN SYNDROME, UNSPECIFIED Status: Chronic Comment: with mental retardation (4) Hypothyroidism Code(s): E03.9 - HYPOTHYROIDISM, UNSPECIFIED Status: Chronic Comment: with current itrogenic hyperthyroidism (5) Seizure disorder Code(s): G40.909 - EPILEPSY, UNSP, NOT INTRACTABLE, WITHOUT STATUS EPILEPTICUS Status: Chronic - Plan * Resume thyroid medication * hospice evalutaion pending * comfort care * start eye drops * family would like to send patient to SNF then set up hospice there * cont current plan otherwise with no changes * case and plan d/w patient's family at length, they understood and agreed with this plan.
[2018-11-28] MEDS ORDERED: Levothyroxine Sodium 50 MCG TAB PO SCH (06:00)
--- NOTE | 2018-11-28 07:59 | PDOC.PN ---
- Subjective Encounter Start Date: 11/28/18 Encounter Start Time: 10:45 -: non-verbal Subjective: Patient non-verbal. Did open her eyes and smile for me. Otherwise sleeping -: during the exam and discussion with family. 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 Considering hospice but no certain about it at this time. - Objective Resuscitation Status - Order Detail: 11/23/18 23:28 Resuscitation Status Routine Resuscitation Status: DNAR: NO Resuscitation Discussed with: Sister ELIO Reviewed: Yes Vital Signs & Weight: Vital Signs (12 hours) Temp Pulse Resp BP Pulse Ox 11/28/18 04:00 97 F L 68 16 96/62 95 11/28/18 00:00 98.1 F 70 16 94/52 L 93 L 11/27/18 20:00 97 Weight Admit Weight 147 lb Weight 147 lb I&O: 11/27/18 11/28/18 11/29/18 06:59 06:59 06:59 Intake Total 470 Output Total 80 300 Balance 390 -300 Result Diagrams: 11/27/18 02:41 11/27/18 02:41 Phys Exam - Physical Examination Constitutional: NAD HEENT: moist MMs Respiratory: no wheezing, no rales, no rhonchi Cardiovascular: RRR, no significant murmur Gastrointestinal: soft, positive bowel sounds Neurological: non-focal Deviation from normal: sleeping, arousable Dx/Plan (1) New onset of congestive heart failure Code(s): I50.9 - HEART FAILURE, UNSPECIFIED Status: Acute Comment: diastolic , hyperdynamic EF, with pulmonary congestion, elevated BNP and troponin, Lasix now held due to low BP and creatinine bump which have resolved, appears at normal fluid status now (2) GIBSON (acute kidney injury) Code(s): N17.9 - ACUTE KIDNEY FAILURE, UNSPECIFIED Status: Resolved (3) Down's syndrome Code(s): Q90.9 - DOWN SYNDROME, UNSPECIFIED Status: Chronic Comment: with mental retardation (4) Hypothyroidism Code(s): E03.9 - HYPOTHYROIDISM, UNSPECIFIED Status: Chronic Comment: with current itrogenic hyperthyroidism (5) Seizure disorder Code(s): G40.909 - EPILEPSY, UNSP, NOT INTRACTABLE, WITHOUT STATUS EPILEPTICUS Status: Chronic (6) Failure to thrive in adult Status: Acute Comment: patient refusing most po intake, DNR, family doesn't want PEG, they wanted to transition to a new long term in [facility] but denied, considering 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 - Discharge Day Encounter end time: 11:15
[2018-11-28] MEDS ORDERED: Potassium Chloride 20 MEQ TAB PO SCH (08:00)
[2018-11-28] MEDS: Aspirin Chewable 81 MG TAB PO SCH (08:26)
[2018-11-28] MEDS: Heparin 5,000 UNITS/ML VIAL SC SCH ×2 (08:27→16:02)
[2018-11-28] MEDS: Polyethylene Glycol 3350 17 GM Packet PO SCH (08:27)
[2018-11-28] MEDS: Famotidine 20 MG TAB PO PRN (09:30)
[2018-11-28] MEDS: Valproate Sodium 250 mg/5 ml UD Cup PO SCH (12:26)
[2018-11-28] MEDS: cefTRIAXone\\ROCEPHIN 1 GM in Sodium Chloride 0.9% 100 ML IVPB SCH (12:26)
[2018-11-28 15:49] VITALS: BP 114/59; TEMP 98.3
--- NOTE | 2018-11-29 13:13 | DIS ---
DATE OF ADMISSION: 11/23/2018 DATE OF DISCHARGE: 11/28/2018 PRIMARY CARE PHYSICIAN: Dr. White. REASON FOR ADMISSION: Presented from skilled nursing with possible hypoxia that was transient. DIAGNOSES AT DISCHARGE: 1. New onset diastolic congestive heart failure, resolved. 2. Acute kidney injury, resolved. 3. Down syndrome, with progressive dementia. 4. Hypothyroidism. 5. Seizure disorder. 6. Failure to thrive in an adult. PROCEDURES: 1. CTA of the chest and thorax showing no evidence of pulmonary embolism. There was a right pleural effusion and right basilar atelectasis and cardiomegaly with vascular congestion with possibly mild edema bilaterally. 2. Echocardiogram showing ejection fraction of greater than 65% to 70%. CONSULTATIONS: None. SUMMARY OF HOSPITAL COURSE: This is a 58-year-old female with a history of Down syndrome and with mental retardation and who is deaf. She is a skilled nursing resident, had been fairly active until about 7 or 8 years ago in her [facility], where she did some work and was taken care of, closed down. She was moved to a skilled nursing, because by the time she was unable to walk because of the hip injury. She has been in the skilled nursing ever since. She has had progressive decline over that time period, now is nonverbal. Does not eat very well anymore. She was noted to be lethargic at the skilled nursing, had a chest x-ray done that was read with bilateral interstitial inflammatory changes, possibly pneumonia, so she was sent to the emergency room. There was also some question of her having O2 sats in 84%, systolic blood pressures in 70s. However, when she arrived at the emergency room, she had a normal blood pressure. Her O2 saturation was 94% on room air. The patient was transferred to our facility. She had a CTA with above results. The patient was given IV diuresis. She diuresed quite a lot, then she did have some low blood pressures and her creatinine started to rise and the diuretics were held. Her blood pressure stabilized and she has been stable since. She is saturating well on room air the entire time she has been in the hospital. The patient has had very poor p.o. intake which is actually not completely new. She had no evidence of infection, but was given antibiotics while she was in the hospital, ceftriaxone. She had normal white count during hospitalization. The patient progressively declined and lack of good p.o. intake were discussed with the family. They had talked about possibility of feeding tube, but wanted to see how she did. I also discussed possibility of hospice, but did not want to do that quite yet. The patient apparently few years ago did have a time where she lost her appetite and stopped eating and lost a significant amount of weight, but eventually came back , so they are hoping this will happen again. The patient was stable. The family did want to try and get her in the skilled nursing in town here. However, she was denied at [facility]; so she is being sent back to [facility]. DISCHARGE MANAGEMENT: Location: Discharged back to her skilled nursing. Activity: As tolerated. Diet: Fluid-restricted diet with pureed solids and nectar thick liquids by spoon. Therapy: Speech therapy. FOLLOWUP: Follow up with Dr. White in 1 week. DISCHARGE MEDICATIONS: Continue all previous home medications. 1. Aspirin 81 mg daily. 2. Lorazepam 0.5 mg as needed. 3. Polyethylene glycol 17 g daily. 4. Ranitidine 150 mg as needed. 5. Valproic acid 225 mg daily in the morning and 250 mg at night. 6. Levothyroxine 250 mcg daily. 7. Multivitamin daily. Arranging the details of this discharge took 32 minutes. Job ID: [id number] MTDD
== END 2018-11-28 18:55 | DRG 292 ==
LOC: ERS 17:30 → 2SE 21:52
PROVIDERS: ADMIT Hospitalist; ATTEND Hospitalist
DX: I50.31 Acute diastolic (congestive) heart failure (principal); N17.9 Acute kidney failure, unspecified; I24.8 Other forms of acute ischemic heart disease; Z66 Do not resuscitate; Q90.9 Down syndrome, unspecified; E03.9 Hypothyroidism, unspecified; M19.90 Unspecified osteoarthritis, unspecified site; K21.9 Gastro-esophageal reflux disease without esophagitis; I37.1 Nonrheumatic pulmonary valve insufficiency; H91.90 Unspecified hearing loss, unspecified ear; G40.909 Epilepsy, unspecified, not intractable, without status epilepticus; D75.89 Other specified diseases of blood and blood-forming organs; F03.90 Unspecified dementia, unspecified severity, without behavioral disturbance, psychotic disturbance, mood disturbance, and anxiety; R62.7 Adult failure to thrive; F79 Unspecified intellectual disabilities; N18.9 Chronic kidney disease, unspecified; Z88.6 Allergy status to analgesic agent; Z79.899 Other long term (current) drug therapy
CPT/HCPCS: 36415; 71045; 71275; 80048; 80164; 82140; 83605; 83735; 84145; 84439; 84443; 84484; 84550; 85025; 85379; 87040; 87149; 93005; 93306; 96361; 96365; 96366; 96375; J0696; J1644; J1940; J1956; J3370; J3490; Q9966

== ENCOUNTER 2019-04-21 17:19 | Inpatient (IN) | payer MEDICARE, MEDICAID ==
[2019-04-21] MEDS ORDERED: Ketamine 50 MG/ML (10ML VIAL) ONE (17:46)
[2019-04-21 18:44] LABS: Hemoglobin 12.6 g/dL (12.0-16.0); Mean Platelet Volume 8.1 fL (7.4-10.4); Platelet Count 185 thou/uL (130-400); Red Blood Cell (RBC) Count 3.67 mill/uL (4.20-5.40); White Blood Cell (WBC) Count 9.4 thou/uL (4.8-10.8)
[2019-04-21 18:58] LABS: ALT (SGPT) 12 U/L (8-55); AST (SGOT) 35 U/L (5-34); Albumin 3.1 g/dL (3.5-5.0); Alkaline Phosphatase 54 U/L (40-110); Anion Gap 14 mmol/L (10-20); BUN (Urea Nitrogen) 19 mg/dL (9.8-20.1); Bilirubin, Total 0.4 mg/dL (0.2-1.2); Calc. Creatinine Clearance 0 mL/min (70-130); Calcium 7.8 mg/dL (7.8-10.44); Carbon Dioxide 23 mmol/L (22-29); Chloride 105 mmol/L (98-107); Estimated GFR-MDRD 51; Globulin 3.4 g/dL (2.4-3.5); Glucose 131 mg/dL (70-105); Potassium 4.3 mmol/L (3.5-5.1); Protein, Total 6.5 g/dL (6.0-8.3); Sodium 138 mmol/L (136-145)
[2019-04-21 19:08] LABS: #Eosinphils 0.1 thou/uL (0.0-0.7); #Lymphocytes 0.5 thou/uL (1.20-3.40); #Monocytes 0.2 thou/uL (0.11-0.59); #Neutrophils 8.7 thou/uL (1.40-6.50); %Basophils 0.5 % (0.0-1.0); %Eosinophils 0.6 % (0.0-10.0); %Lymphocytes 4.8 % (21.0-51.0); %Monocytes 1.7 % (0.0-10.0); %Neutrophils 92.5 % (42.0-75.0); Mean Corpuscular HGB CONC 32.8 g/dL (32.0-36.0); Mean Corpuscular Hemoglobin 34.4 pg (27.0-31.0); RBC Distribution Width 16.2 % (11.5-14.5)
[2019-04-21] MEDS ORDERED: Cefepime 2 GM VIAL ONE (19:09)
[2019-04-21] MEDS ORDERED: Furosemide 20 MG/2 ML VIAL ONE (19:09)
[2019-04-21 19:10] LABS: Anisocytosis SLIGHT = 6-15 cells (100X) (0-5/hpf); Platelet Morphology Comment Appears Adequate
[2019-04-21 19:18] LABS: Thyroid Stimulating Hormone 82.5754 uIU/mL (0.35-4.94)
[2019-04-21 19:25] LABS: Bacteria/HPF None Seen HPF (None Seen); Bilirubin Negative (Negative); Blood, Urine Trace (Negative); Clarity Clear (Clear); Glucose, Urine (Dipstick) Normal (Negative); Leukocyte Negative Leu/uL (Negative); Nitrite Negative (Negative); Protein, Urine (Dipstick) Negative (Neg-Trace); RBC/HPF None Seen HPF (0-3); Squamous Epithelial 0-3 HPF (0-3); Urobilinogen Normal mg/dL (Less than 2); WBC/HPF 0-3 HPF (0-3)
[2019-04-21 20:04] LABS: T4 Less than 2.0 ug/dL (4.87-11.72)
[2019-04-21] MEDS ORDERED: Levothyroxine 100 MCG SDV SLOW IVP SCH (20:15)
[2019-04-21] MEDS ORDERED: Ondansetron PF 4 MG/2 ML Vial IVP PRN (20:21)
[2019-04-21] MEDS ORDERED: Bisacodyl 10 MG SUPP PR PRN (20:21)
[2019-04-21] MEDS ORDERED: Acetaminophen 325 MG TAB PO PRN (20:21)
[2019-04-21] MEDS ORDERED: Acetaminophen 650 MG Suppository PR PRN (20:21)
[2019-04-21] MEDS ORDERED: Furosemide 100 MG in Sodium Chloride 0.9% 90 ML IVPB SCH (20:30)
[2019-04-21 20:43] LABS: Troponin I 0.054 ng/mL (< 0.028)
[2019-04-21] MEDS ORDERED: Valproic Acid 250 MG CAP PO SCH (21:00)
[2019-04-21] MEDS ORDERED: Cefepime 1 GM in Sodium Chloride 0.9% 100 ML IVPB SCH (21:00)
--- NOTE | 2019-04-21 21:35 | HP ---
REASON FOR ADMISSION: Acute respiratory failure, volume overload, hypotension, acute encephalopathy, possible severe hypothyroidism. HISTORY OF PRESENTING ILLNESS: Please note majority of this history is obtained by talking to ER physician, Dr. Godinez, prior medical records as the patient is nonverbal and is currently on BiPAP. She does not respond to painful stimuli. The patient resists even opening her eyes. Per ER records and [facility] records, the patient and per sister, Ms. Coombs who is here at bedside, the patient was in bed. She usually sits in a wheelchair. Today was her birthday and sister had gone to [facility] to visit her. She had lot of swelling on her face and her eyes were red. She also was short of breath. She brought this to the attention of staff there and they called her primary care physician and the patient was transferred to [place] [facility] from where she was transferred here. The patient had saturations of 79% on 4 L of oxygen on arrival at [place] and had to be placed on BiPAP. The sister also mentions that she was taken off fluid restriction and Lasix in November 2018. PAST MEDICAL AND SURGICAL HISTORY: History of Down syndrome, nonverbal, wheelchair-bound, very hard of hearing, severe right hip osteoarthritis and cannot bear weight, hypothyroidism, mitral valve prolapse, history of CHF with diastolic dysfunction, and sees Dr. Jordan. 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 ALLERGIES: TO CLINDAMYCIN, MOTRIN, NAPROSYN, NSAIDS. MEDICATIONS: I am currently waiting for the [facility] to fax all her medication list. Per prior records, when she was in October, the patient was on; 1. Aspirin chewable 81 mg daily. 2. Synthroid 250 mcg daily. 3. Lorazepam p.r.n. 4. Multivitamin 1 tablet daily. 5. MiraLAX 17 g daily. 6. Ranitidine 150 mg daily. 7. Valproic acid 125 mg at noon and 250 mg p.o. q.p.m. CODE STATUS: I have discussed this with the patient's power of civil litigation attorney, Ms. Stephen who is also patient's sister. She wants her to be do not attempt to resuscitate. Number to reach her is [phone]. FAMILY HISTORY: Mother at the age of 92. Father at the age of 44. He has had history of hypertrophic obstructive cardiomyopathy. REVIEW OF SYSTEMS: Cannot be obtained as the patient is currently unresponsive. PHYSICAL EXAMINATION: GENERAL: The patient is a 59-year-old female who is currently in respiratory distress, on BiPAP. VITAL SIGNS: Blood pressure is currently 100/60 on 10 mcg of Levophed, pulse 68 per minute, respiratory rate 16 per minute, temperature 98.1 degrees Fahrenheit, saturating 100% on BiPAP, was 79% on 4 L nasal cannula on arrival. NECK: Supple. There is edema of the face and neck. She also has edema around her eyes and the facials and on the face. CARDIOVASCULAR SYSTEM: S1, S2 heard. Regular rhythm. RESPIRATORY SYSTEM: Air entry 1+ bilateral. Scattered rales plus bilateral. ABDOMEN: Soft and distended. Bowel sounds heard. No rigidity or guarding. EXTREMITIES: The patient has thinning of both lower extremities due to disuse atrophy. Peripheral pulses are 1+ in the upper extremities. Lower extremities are barely palpable. Has discoloration of skin on the legs which is chronic per sister who is here at bedside confirms. CENTRAL NERVOUS SYSTEM: No gross focal motor deficits noted. The patient has lower extremity chronic disuse atrophy. PSYCHIATRIC: Cannot be assessed as the patient is obtunded at present. LABORATORY DATA: White count of 9, H and H are 12 and 38, platelet count 185, MCV is 105 with 92% neutrophils. Electrolytes stable. BUN 19, creatinine 1.1, serum glucose 131, calcium 7.8, lactic acid 2.2, AST 35, ALT 12, alkaline phosphatase 54, albumin 3.1. TSH is 82.57. UA shows no evidence of infection. Chest x-ray done shows pulmonary vascular congestion with cardiomegaly. CT stone protocol done shows no acute intraabdominal or pelvic abnormality. There is nonspecific calcification of left adrenal gland and fat containing umbilical hernia. CT neck soft tissue with contrast done at [place] shows old fracture/dislocation of the left side of the upper cervical spine includes jumped and locked facets on the left at C4-C5 and old comminuted fractures of the left inferior articular facets of C4 and C5. There is narrowing of the nasopharyngeal airway by a combination of thickening of the longus colli, longus capitis muscles and thickening of the uvula. CLINICAL IMPRESSION AND PLAN: The patient will be admitted to critical care unit for volume overload, likely CHF with diastolic dysfunction. She is also hypotensive and also has likely hypothyroidism. It is unclear if the patient was taking her levothyroxine before. We will obtain a free T4, free T3, and TSH repeat in the morning. She has gotten 75 mcg low IV push in the ER now. She will be on aspirin, Lasix 4 mg/hour drip, Levophed currently at 10 mcg and levothyroxine 100 mcg IV daily from tomorrow. We will continue her Depakote liquid if she can swallow to prevent seizures. The patient likely has seizures due to her history of Down syndrome. Echo with 2D Doppler for LV function. We will obtain cortisol levels in the morning. Blood and urine cultures. Empiric cefepime. We will continue her BiPAP for now. The patient is do not attempt to resuscitate. I have discussed her findings with Dr. Contreras, who will see her. We will also obtain consultation with Dr. Juarez who is on-call for the weekend and Dr. Lozano for Nephrology. Job ID: [id number]
[2019-04-21 21:44] VITALS: BMI 32.4
[2019-04-21] MEDS: Valproate Sodium 250 mg/5 ml UD Cup PO SCH (22:06)
[2019-04-21 22:18] LABS: Troponin I 0.038 ng/mL (< 0.028)
[2019-04-21 22:24] LABS: Lactic Acid 1.3 mmol/L (0.5-2.2)
[2019-04-21] MEDS: methylPREDNISolone Sod Succ 40 MG VIAL IVP SCH (22:52)
[2019-04-21] MEDS: Famotidine/PF 20 mg/2ml Vial SLOW IVP SCH (22:52)
[2019-04-22] MEDS: Norepinephrine 8 MG in Dextrose 5% in Water 242 ML IVPB SCH ×3 (01:26→20:38)
[2019-04-22 04:40] LABS: #Lymphocytes 0.7 thou/uL (1.20-3.40); #Monocytes 0.1 thou/uL (0.11-0.59); #Neutrophils 10.7 thou/uL (1.40-6.50); %Basophils 0.1 % (0.0-1.0); %Eosinophils 0.3 % (0.0-10.0); %Lymphocytes 6.1 % (21.0-51.0); %Monocytes 1.1 % (0.0-10.0); %Neutrophils 92.5 % (42.0-75.0); Hemoglobin 13.1 g/dL (12.0-16.0); Mean Corpuscular HGB CONC 32.6 g/dL (32.0-36.0); Mean Corpuscular Hemoglobin 34.2 pg (27.0-31.0); Mean Platelet Volume 8.6 fL (7.4-10.4); Platelet Count 214 thou/uL (130-400); RBC Distribution Width 16.1 % (11.5-14.5); Red Blood Cell (RBC) Count 3.82 mill/uL (4.20-5.40); White Blood Cell (WBC) Count 11.6 thou/uL (4.8-10.8)
[2019-04-22 04:58] LABS: Anion Gap 13 mmol/L (10-20); BUN (Urea Nitrogen) 22 mg/dL (9.8-20.1); Calc. Creatinine Clearance 55 mL/min (70-130); Carbon Dioxide 24 mmol/L (22-29); Chloride 102 mmol/L (98-107); Estimated GFR-MDRD 42; Glucose 219 mg/dL (70-105); Potassium 4.2 mmol/L (3.5-5.1); Sodium 135 mmol/L (136-145)
[2019-04-22 05:19] LABS: Thyroid Stimulating Hormone 60.7621 uIU/mL (0.35-4.94)
[2019-04-22] MEDS: Levothyroxine 100 MCG SDV IVP SCH (05:58)
[2019-04-22] MEDS: methylPREDNISolone Sod Succ 40 MG VIAL IVP SCH ×3 (05:58→21:39)
[2019-04-22] MEDS ORDERED: Levothyroxine Sodium 200 MCG VIAL IVP SCH (06:00)
[2019-04-22 06:44] LABS: Free T4 (Free Thyroxine) Less than 0.40 ng/dL (0.70-1.48)
[2019-04-22] MEDS: Aspirin Chewable 81 MG TAB PO SCH (09:00)
[2019-04-22] MEDS ORDERED: FLU VACC QS2019-20(6MOS UP)/PF 60 MCG/0.5 ML SYRINGE IM ONE (09:00)
--- NOTE | 2019-04-22 10:32 | RAD ---
Portable frontal chest radiograph: 04/22/2019 COMPARISON: 11/26/2018, 04/21/2019 HISTORY: BiPAP, myxedema, dyspnea FINDINGS: Pulmonary vascular congestion is noted, slightly worsened. There is increasing nonspecific linear density in the left perihilar region which may be on the basis of edema or aspiration. Opacity within the left base has worsened with medial left basilar consolidation/collapse and small l eft pleural effusion. IMPRESSION: Increasing pleural-parenchymal opacity in the left perihilar region/left base.
[2019-04-22] MEDS: Cefepime 1 GM in Sodium Chloride 0.9% 100 ML IVPB SCH ×2 (11:15→20:38)
[2019-04-22] MEDS: Famotidine/PF 20 mg/2ml Vial SLOW IVP SCH ×2 (11:16→20:38)
[2019-04-22] MEDS: Enoxaparin Sodium 40 MG/0.4 ML SYRINGE SC SCH (11:17)
[2019-04-22 11:27] LABS: Actual Bicarbonate (HCO3a) 26.1 mEq/L (22-28); Base Excess (BEa) 2.6 mEq/L (-2.0 to +3.0); Calcium, Ionized 1.05 mmol/L (1.12-1.30); Carboxyhemoglobin (COHb) 0.5 gm% (0.0-3.0); Hemoglobin (Hb) 13.9 g/dL (12.0-16.0); O2 Tension (PaO2) 95.7 mmHg (80.0-100.0); Potassium - ABG Lab 4.31 mmol/L (3.70-5.30); pH, Arterial 7.47 (7.35-7.45)
[2019-04-22] MEDS ORDERED: Sodium Chloride 0.9% 1,000 ML IV SCH (12:00)
[2019-04-22] MEDS: Sodium Chloride 0.9% 1,000 ML IV SCH ×2 (12:15→18:46)
--- NOTE | 2019-04-22 12:32 | CON ---
DATE OF CONSULTATION: 04/22/2019 HISTORY OF PRESENT ILLNESS: Latosha Flores is a 59-year-old female. She is unable to give a history. Family is at the bedside. Apparently, [facility] until yesterday. The family checks on her just about every day. Yesterday, they noticed that she had an upper airway rattle. The physician at the [facility] wanted to get some lab work, but the mother wanted her to come to the hospital. She was placed on BiPAP. She is stable at this time. She is unable to give a history. She does open her eyes when stimulated. She is essentially bedridden according to family. PAST MEDICAL HISTORY: Remarkable for, 1. Down syndrome. 2. History of hearing impairment. 3. She has a history of normal cardiac function according to the family. She has been followed by Dr. Jordan in the past. 4. She has a history of arthritis and hypothyroidism, which she is only on 25 mcg of Synthroid. ALLERGIES: SHE REPORTS ALLERGIES TO CLEOCIN, MOTRIN, AND NAPROSYN. MEDICATIONS: She apparently prior to admission was on, 1. Aspirin. 2. Synthroid. 3. P.r.n. lorazepam. 4. MiraLAX. 5. Ranitidine. 6. Valproic acid. CODE STATUS: She is a do not resuscitate. SOCIAL HISTORY: Obviously, she is a nonsmoker and nondrinker. FAMILY HISTORY: Father of the patient young. Mother at 92. REVIEW OF SYSTEMS: Otherwise negative. PHYSICAL EXAMINATION: GENERAL: Again, she opens her eyes. She is on Levophed. VITAL SIGNS: Blood pressure is 97/67, heart rate 60, respiratory rates in the teens. HEENT: Sclerae are anicteric. NECK: Without lymphadenopathy. LUNGS: Remarkable for coarse equal breath sounds bilaterally. HEART: Regular rhythm. ABDOMEN: Soft and nontender. EXTREMITIES: Without clubbing, cyanosis, or edema. LABORATORY DATA: White count 11.6, hemoglobin 13.1, platelets 214. Sodium 135, potassium 4.2, chloride 102, bicarb 24, BUN 22, creatinine 1.31. TSH is 60. The family is concerned about her facial puffiness and peripheral edema. Abdominal CT to rule out stones done for some reason shows a left pleural effusion. I do not see any findings consistent with pulmonary edema. I do see a finding suggestive of pericardial effusion, although it appears to be small on CAT scan. IMPRESSION: 1. Myxedema accounting for her puffiness. 2. Upper airway retained secretions accounting for the "rattle.". I do not feel that this is congestive heart failure. I think the Lasix drip needs to be stopped. I feel that hypothyroidism explains the chronic findings, the edema, and the pleural effusion. This pleural effusion did not occur quickly. It is reasonable to continue noninvasive ventilatory support for another 24 hours, but I would discontinue this in the morning. I would proceed with comfort care after that. I do agree with increasing her thyroid replacement intravenously, although all of these problems will take weeks if not months to get better. I feel the true real problem here is that her Down's has reached to a point where she is too weak to handle her secretions. Apparently, family never has wanted to place a feeding tube and she has been fed with pureed food at the [facility]. They say that she does not need much. I will follow with the other physicians caring for her. CRITICAL CARE TIME: 30 minutes. Job ID: [id number] MTDD
[2019-04-22] MEDS: Valproate Sodium 250 mg/5 ml UD Cup PO SCH ×2 (12:57→20:41)
--- NOTE | 2019-04-22 13:37 | PDOC.HOSPP ---
- Subjective Encounter Date: 04/22/19 Encounter Time: 11:45 Subjective: opens eyes, does not follow verbal stimuli is on bipap sister at bedside - Objective Vital Signs & Weight: Vital Signs (12 hours) Temp Pulse Resp Pulse Ox 04/22/19 07:30 65 17 99 04/22/19 04:00 96.4 F L Weight Weight 166 lb 3.657 oz Most Recent Monitor Data Heart Rate from ECG 55 NIBP 81/53 NIBP BP-Mean 57 Respiration from ECG 11 SpO2 98 I&O: 04/21/19 04/22/19 04/23/19 06:59 06:59 06:59 Intake Total 342.8 Output Total 1100 Balance -757.2 Result Diagrams: 04/22/19 03:55 04/22/19 03:55 Hospitalist ROS - Medication Medications: Active Medications Generic Name Dose Route Start Last Admin Trade Name Freq PRN Reason Stop Dose Admin Aspirin 81 mg 04/22/19 09:00 04/22/19 09:00 Aspirin Chewable PO Not Given DAILY OLEKSANDR Enoxaparin Sodium 40 mg 04/22/19 09:00 04/22/19 11:17 Lovenox SC 40 mg 0900 OLEKSANDR Administration Famotidine 20 mg 04/21/19 21:00 04/22/19 11:16 Pepcid SLOW IVP 20 mg Q12HR OLEKSANDR Administration Norepinephrine Bitartrate 8 mg 250 mls @ 0 mls/hr 04/21/19 20:30 04/22/19 10: 47 / Dextrose/Water IVPB 250 mls INF OLEKSANDR Administration Protocol Titrate Cefepime HCl 1 gm/ Sodium 100 mls @ 200 mls/hr 04/22/19 09:00 04/22/19 11:15 Chloride IVPB 100 mls Q12HR OLEKSANDR Administration Levothyroxine Sodium 100 mcg 04/22/19 06:00 04/22/19 05:58 Synthroid IVP 100 mcg 0600 OLEKSANDR Administration Methylprednisolone Sodium Succinate 20 mg 04/21/19 22:00 04/22/19 05:58 Solu-Medrol IVP 20 mg Q8HR OLEKSANDR Administration Valproic Acid 125 mg 04/22/19 12:00 04/22/19 12:57 Depakene Liquid PO Not Given 1200 OLEKSANDR Valproic Acid 250 mg 04/21/19 21:00 04/21/19 22:06 Depakene Liquid PO Not Given QPM OLEKSANDR - Exam General Appearance: awake alert Eye: PERRL, anicteric sclera ENT: no oropharyngeal lesions, moist mucosa Neck: supple, no JVD Heart: RRR, no rubs Respiratory: no wheezes, no rales Gastrointestinal: soft, non-tender, non-distended, normal bowel sounds Extremities: no cyanosis, no edema Neurological: no focal deficits Hosp A/P (1) Myxedema Code(s): E03.9 - HYPOTHYROIDISM, UNSPECIFIED Status: Acute (2) Acute respiratory failure with hypoxia Code(s): J96.01 - ACUTE RESPIRATORY FAILURE WITH HYPOXIA Status: Acute (3) Cortisol deficiency Code(s): E27.49 - OTHER ADRENOCORTICAL INSUFFICIENCY Status: Acute (4) Hypotension Status: Acute (5) Sensorineural deafness Code(s): H90.5 - UNSPECIFIED SENSORINEURAL HEARING LOSS Status: Chronic (6) FTT (failure to thrive) in adult Status: Chronic (7) Down's syndrome Code(s): Q90.9 - DOWN SYNDROME, UNSPECIFIED Status: Chronic (8) Hypothyroidism Code(s): E03.9 - HYPOTHYROIDISM, UNSPECIFIED Status: Chronic - Plan is off lasix drip, her facial swelling has come down drastically overnight with diuresis is on levothyroixin iv 100mcg, free T3, 4 were very low, not likely taking her oral thyroid pills at [facility] continue steroids until am/hypotension resolves prior h/o chf is on levophed empiric cefepime, may dc if cultures are -ve d/w sister at bedside likely will come off bipap today
--- NOTE | 2019-04-22 14:34 | CON ---
DATE OF CONSULTATION: REASON FOR CONSULTATION: Generalized edema and hypertension. HISTORY: This is a very pleasant 59-year-old female, who is on BiPAP and can give no further history and somnolent, who was noted to have a creatinine of 1 and generalized edema. The patient was started on a Lasix drip and Levophed. PAST MEDICAL HISTORY: Reviewed. SOCIAL HISTORY: Reviewed. FAMILY HISTORY: Reviewed. ALLERGIES: REVIEWED. REVIEW OF SYSTEMS: Cannot be obtained. The patient is on BiPAP and somnolent. PHYSICAL EXAMINATION: GENERAL: On exam, the patient is resting. VITAL SIGNS: Afebrile, pulse 80, breathing 16, and blood pressure was 90/40. GENERAL APPEARANCE AND MENTAL STATUS: Fair. HEAD/NECK: Normocephalic. Atraumatic. EYES: EOMI. No deformity. EARS: Clear. No ulcers. NOSE: Intact. No lesions. MOUTH: Clear. No discharge. THROAT: Clear. No exudate. LUNGS: Clear. No crackles. CARDIAC: S1, S2. No rub. ABDOMEN: Benign. Bowel sounds positive. GENITALIA/RECTUM: Adhikari absent. BACK/EXTREMITIES: Edema 0+. NEUROLOGICAL: The patient is resting. SKIN: LYMPHATICS: LABORATORY DATA: Labs show creatinine 1.3. ASSESSMENT AND PLAN: 1. Acute kidney injury with chronic kidney disease most likely due to decreased effective arterial blood volume. 2. Proteinuria, absent. 3. Edema. Continue Lasix drip and follow renal function closely. Overall prognosis is poor. I would recommend Palliative Care consultation. Job ID: [id number]
--- NOTE | 2019-04-22 15:27 | CON ---
DATE OF CONSULTATION: 04/22/2019 INDICATION FOR CONSULTATION: A 59-year-old female who has a history of Down syndrome, history of seizure disorder, had recently been taken off her diuretics , visited by the sister yesterday because it was her birthday. It was noted to have increasing facial edema. She was then taken to the emergency room, was transferred here. She has a history of hypothyroidism, unclear whether or not she has been taking her medications, but she was admitted now with what appears to be myxedema coma, uncertain of what her baseline is. She also has been placed back on valproic acid for history of seizure disorder. I did not see any recent seizures. However, the patient is unresponsive. She does not respond to open your eyes even or verbal stimulation. She is on a BiPAP mask. The information is obtained from the records At this time, she does not appear to be significantly distressed. Her cardiac enzymes are slightly elevated, but was still indeterminate, which would not be unexpected with myxedema coma nor with her history of possible seizure. PAST MEDICAL HISTORY: Significant for Down syndrome, history of seizure disorder, history of hypothyroidism. SOCIAL HISTORY: She resides in a long-term. Her sister visited yesterday. FAMILY HISTORY: Her father had hypertrophic obstructive cardiomyopathy, apparently at age 42. ALLERGIES: SHE IS ALLERGIC TO CLINDAMYCIN, MOTRIN, NONSTEROIDALS, AND NAPROSYN. MEDICATIONS: Prior to admission include 1. Aspirin. 2. Synthroid. 3. Valproic acid. 4. Vitamins. 5. MiraLAX. 6. Lorazepam. In the hospital, she has been started on 1. Maxipime. 2. Lasix. 3. Norepinephrine. 4. Methylprednisolone. 5. Pepcid. 6. Aspirin. 7. Lovenox. 8. Levothyroxine. 9. Depakote. REVIEW OF SYSTEMS: Unobtainable. PHYSICAL EXAMINATION: GENERAL: Reveals a down syndrome appearing person with a BiPAP mask on, who is unresponsive. VITAL SIGNS: Blood pressure is 118/74, heart rate is 52, respiratory rate 17, O2 saturations 100%. Temperature, she is afebrile. HEENT: Reveals the head to be normocephalic. She has evidence of Down syndrome. She has a BiPAP mask in place. I cannot hear any carotid bruits. CHEST: Actually I did not hear any rales, rhonchi, or wheezing at this time. CARDIOVASCULAR: Reveals a regular rate and rhythm. There were no gross murmurs noted. ABDOMEN: Shows obesity. Positive bowel sounds are present. EXTREMITIES: Showed some physical malformation of the feet and ankle areas. She does not have any significant edema. Pedal pulses are difficult to palpate. NEUROLOGIC: As noted above, the patient is somewhat obtunded. She does make some twitching movements at times. Otherwise, no significant response to stimulation. IMAGING STUDIES: EKG shows a normal sinus rhythm with a heart rate of 80 beats per minute. Chest x-ray shows mild cardiomegaly, minimal amounts of congestion perhaps. IMPRESSION: 1. Down syndrome female with myxedema coma, who has respiratory failure and been placed on a BiPAP mask. She is a DNR. She is undergoing thyroid replacement. She has also been given antibiotics for possible aspiration. However, her white count is 11.6 and she is afebrile. We will continue to follow this with replacement. 2. Possible congestive heart failure. An echocardiogram has been ordered. This is not yet available. At this time, I would stop the IV Lasix. Her BUN and creatinine appear to be normal. She does not appear to be significantly volume overloaded clinically and I suspect when the thyroid level is corrected, then the edema will resolve. 3. Diabetes. This is to be dealt with by the primary care service. This is actually poorly controlled. 4. Acute encephalopathy. We do not know what the baseline of the patient is. Perhaps when the family arrives, we can have some discussion to see exactly what her baseline is. 5. Hypoxemia prior to admission. This has been resolved now and she is on a BiPAP mask. At this time, we will await the results of the echocardiogram. There are no further cardiac recommendations at this time. The cardiac enzymes most likely are elevated due to the stressful situation associated with hypoxemia and the possible seizure. No further evaluation would be indicated at this time. Review the echocardiogram will give us better insight, but I do not see an indication that the patient needs to be on IV Lasix at this time. Job ID: [id number] MTDD
[2019-04-23] MEDS: Sodium Chloride 0.9% 1,000 ML IV SCH ×3 (03:52→15:11)
[2019-04-23] MEDS: methylPREDNISolone Sod Succ 40 MG VIAL IVP SCH ×3 (05:41→21:37)
[2019-04-23] MEDS: Levothyroxine 100 MCG SDV IVP SCH (05:41)
[2019-04-23] MEDS: Famotidine/PF 20 mg/2ml Vial SLOW IVP SCH ×2 (09:49→20:24)
[2019-04-23] MEDS: Cefepime 1 GM in Sodium Chloride 0.9% 100 ML IVPB SCH (09:49)
[2019-04-23] MEDS: Enoxaparin Sodium 40 MG/0.4 ML SYRINGE SC SCH (09:49)
[2019-04-23] MEDS: Aspirin Chewable 81 MG TAB PO SCH (09:54)
--- NOTE | 2019-04-23 12:10 | PRG ---
DATE OF SERVICE: 04/23/2019 SUBJECTIVE: This is a 59-year-old female being seen for acute kidney injury. The patient denies any nausea, vomiting, or chest pain. OBJECTIVE: See above. The patient is awake and alert. VITAL SIGNS: Pulse 75, breathing 16, blood pressure was 118/51. GENERAL APPEARANCE AND MENTAL STATUS: Fair. HEAD/NECK: Normocephalic. Atraumatic. EYES: EOMI. No deformity. EARS: Clear. No ulcers. NOSE: Intact. No lesions. MOUTH: Clear. No discharge. THROAT: Clear. No exudate. LUNGS: Clear. No crackles. CARDIAC: S1, S2. No rub. ABDOMEN: Benign. Bowel sounds positive. GENITALIA/RECTUM: Adhikari absent. BACK/EXTREMITIES: Edema 0+. NEUROLOGICAL: Alert and motor intact. SKIN: LYMPHATICS: LABORATORY DATA: Reviewed. ASSESSMENT: 1. Acute kidney injury with chronic kidney disease. Recheck labs. 2. Hypertension, stable. 3. Anemia, stable. 4. Edema due to hypothyroidism. Follow up closely. Please reconsult as needed. Job ID: [id number]
[2019-04-23] MEDS: Valproate Sodium 250 mg/5 ml UD Cup PO SCH ×2 (13:31→21:37)
--- NOTE | 2019-04-23 17:13 | PRG ---
DATE OF SERVICE: 04/23/2019 SUBJECTIVE: Ms. Flores was awake and able to actually go back to eating pureed food today. She does not have any trouble with her secretions. She was smiling. OBJECTIVE: VITAL SIGNS: Heart rate was in the 70s, blood pressures this afternoon is 121/60, respiratory rate in the teens. BiPAP was removed this morning. She did well after removal of BiPAP. Intake and output, positive 1716. LUNGS: Clear. HEART: Regular rhythm. ABDOMEN: Soft. Her mother thinks she was on 0.1 of Synthroid at the [facility], but I have a hard time believing that with 0.1 of Synthroid, her TSH would be 60. She will continue with IV Synthroid for now. She did not have any lab today. She can be transferred out of the Critical Care Unit. Hopefully, if she is stable overnight, she can be switched to p.o. Synthroid, perhaps at even slightly higher dose of 0.125 or 0.15, which can be mashed up in pudding or ice cream and she can be discharged back to her [facility] environment for further care. There are no acute care issues at this point, given her dramatic improvement. I suspect the reason that she required noninvasive ventilation was all retained secretions and had very little to do with her elevated TSH since she was "fine" the 2 days prior to her transfer here. Job ID: [id number]
[2019-04-23] MEDS ORDERED: Sodium Chloride 0.9% 1,000 ML IV SCH (17:30)
--- NOTE | 2019-04-23 17:30 | PDOC.HOSPP ---
- Subjective Encounter Date: 04/23/19 Encounter Time: 12:00 Subjective: awake, smiles, tries to talk is off bipap, comfortable breathing - Objective Vital Signs & Weight: Vital Signs (12 hours) Temp Pulse Resp Pulse Ox 04/23/19 12:00 97.5 F L 04/23/19 09:00 97.6 F 04/23/19 08:00 98 04/23/19 07:27 65 16 98 Weight Weight 163 lb 2.273 oz Most Recent Monitor Data Heart Rate from ECG 75 NIBP 106/62 NIBP BP-Mean 88 Respiration from ECG 23 SpO2 98 I&O: 04/22/19 04/23/19 04/24/19 06:59 06:59 06:59 Intake Total 342.8 4206.6 Output Total 1100 2490 310 Balance -757.2 1716.6 -310 Result Diagrams: 04/22/19 03:55 04/22/19 03:55 Hospitalist ROS - Medication Medications: Active Medications Generic Name Dose Route Start Last Admin Trade Name Freq PRN Reason Stop Dose Admin Aspirin 81 mg 04/22/19 09:00 04/23/19 09:54 Aspirin Chewable PO Not Given DAILY OLEKSANDR Enoxaparin Sodium 40 mg 04/22/19 09:00 04/23/19 09:49 Lovenox SC 40 mg 0900 OLEKSANDR Administration Famotidine 20 mg 04/21/19 21:00 04/23/19 09:49 Pepcid SLOW IVP 20 mg Q12HR OLEKSANDR Administration Cefepime HCl 1 gm/ Sodium 100 mls @ 200 mls/hr 04/22/19 09:00 04/23/19 09:49 Chloride IVPB 100 mls Q12HR OLEKSANDR Administration Sodium Chloride 1,000 mls @ 150 mls/hr 04/22/19 12:00 04/23/19 15:11 Normal Saline 0.9% IV Not Given .[id number] OLEKSANDR Levothyroxine Sodium 100 mcg 04/22/19 06:00 04/23/19 05:41 Synthroid IVP 100 mcg 0600 OLEKSANDR Administration Methylprednisolone Sodium Succinate 20 mg 04/21/19 22:00 04/23/19 13:42 Solu-Medrol IVP 20 mg Q8HR OLEKSANDR Administration Valproic Acid 125 mg 04/22/19 12:00 04/23/19 13:31 Depakene Liquid PO 125 mg 1200 OLEKSANDR Administration Valproic Acid 250 mg 04/21/19 21:00 04/22/19 20:41 Depakene Liquid PO Not Given QPM OLEKSANDR - Exam General Appearance: awake alert Eye: PERRL, anicteric sclera ENT: no oropharyngeal lesions, dry oral mucosa Neck: symmetric, no JVD Heart: RRR, no murmur Respiratory: no wheezes, no rales Gastrointestinal: soft, non-tender, non-distended, normal bowel sounds Extremities: no cyanosis, 1+ LE edema Neurological: cranial nerve grossly intact, no new deficit Hosp A/P (1) Myxedema Code(s): E03.9 - HYPOTHYROIDISM, UNSPECIFIED Status: Acute (2) Acute respiratory failure with hypoxia Code(s): J96.01 - ACUTE RESPIRATORY FAILURE WITH HYPOXIA Status: Resolved (3) Cortisol deficiency Code(s): E27.49 - OTHER ADRENOCORTICAL INSUFFICIENCY Status: Acute (4) Hypotension Status: Resolved (5) Sensorineural deafness Code(s): H90.5 - UNSPECIFIED SENSORINEURAL HEARING LOSS Status: Chronic (6) FTT (failure to thrive) in adult Status: Chronic (7) Down's syndrome Code(s): Q90.9 - DOWN SYNDROME, UNSPECIFIED Status: Chronic (8) Hypothyroidism Code(s): E03.9 - HYPOTHYROIDISM, UNSPECIFIED Status: Chronic - Plan is on levothyroixin iv 100mcg, free T3, 4 were very low, not likely taking her oral thyroid pills at [place] continue steroids until am prior h/o chf empiric cefepime, will dc in am d/w brother in law transfer to [facility] floor oral diet as tolerated
--- NOTE | 2019-04-24 00:07 | PRG ---
DATE OF SERVICE: 04/23/2019 She was seen in consultation yesterday on 04/22/2019. SUBJECTIVE: Mrs. Flores has had significant improvement since her last visit when I saw her yesterday. She is a 59-year-old female who has severe Down's syndrome and some dementia. She was admitted yesterday, was felt to have myxedema and had respiratory distress or respiratory failure. At this time, she is doing much better. She has been off the BiPAP machine. She only has some O2 by nasal cannula. Her heart rate is now stable. Blood pressure is stable at 106/82. O2 saturations are 97%, respiratory rate is about 20. She had also been on Levophed, pressors for the blood pressure when she was hypotensive and she is off the pressors and is doing very well. Her chest is clear to auscultation. Cardiovascular exam reveals a regular rate and rhythm. There were no gross murmurs noted. Extremities showed no significant clubbing or cyanosis. She does have some deformities of the feet, which is ongoing problem. Apparently, this is not new. Otherwise, she remains relatively stable. Her echocardiogram showed an ejection fraction of 65% to 70%. IMPRESSION: 1. Acute respiratory failure, which is felt to be due to retained secretions. 2. Acute encephalopathy, which maybe due to the respiratory failure. 3. Hypotension which is resolved. 4. What was felt to be a myxedema coma, most likely this is just due to the respiratory distress that she was then and her thyroid levels will be dealt with by the primary service. 5. Bradycardia. This has also resolved. 6. Diabetes, this again will be dealt with by the primary service and this appears to be under relatively good control except it is somewhat elevated today, was 219 on her last check. 7. Renal insufficiency with a creatinine of 1.3. 8. Abnormal cardiac enzymes. Troponin I up to 0.05. Given her overall situation and the acute phase, most likely this was due to demand ischemia. No further evaluation is indicated in this patient. She appears to be stable at this time for her blood pressure. EKG does not show any acute ischemic changes. The patient has a DNR status. Overall cardiac status otherwise appears to be stable. I will sign off from the patient. Should she have any further problems, please do not hesitate to consult us again. Job ID: [id number]
[2019-04-24] MEDS: methylPREDNISolone Sod Succ 40 MG VIAL IVP SCH (05:46)
[2019-04-24] MEDS: Levothyroxine 100 MCG SDV IVP SCH (05:46)
[2019-04-24] MEDS: Famotidine/PF 20 mg/2ml Vial SLOW IVP SCH (08:21)
[2019-04-24] MEDS: Aspirin Chewable 81 MG TAB PO SCH (08:21)
[2019-04-24] MEDS: Enoxaparin Sodium 40 MG/0.4 ML SYRINGE SC SCH (08:21)
[2019-04-24 08:43] LABS: Anion Gap 11 mmol/L (10-20); BUN (Urea Nitrogen) 18 mg/dL (9.8-20.1); Calc. Creatinine Clearance 70 mL/min (70-130); Calcium 7.4 mg/dL (7.8-10.44); Carbon Dioxide 24 mmol/L (22-29); Chloride 107 mmol/L (98-107); Estimated GFR-MDRD 55; Glucose 83 mg/dL (70-105); Potassium 3.6 mmol/L (3.5-5.1); Sodium 138 mmol/L (136-145)
[2019-04-24 08:46] LABS: Hemoglobin 10.4 g/dL (12.0-16.0); Mean Corpuscular HGB CONC 32.9 g/dL (32.0-36.0); Mean Corpuscular Hemoglobin 34.6 pg (27.0-31.0); White Blood Cell (WBC) Count 3.2 thou/uL (4.8-10.8)
[2019-04-24 08:49] LABS: #Lymphocytes 0.4 thou/uL (1.20-3.40); #Monocytes 0.1 thou/uL (0.11-0.59); #Neutrophils 2.6 thou/uL (1.40-6.50); %Eosinophils 1.4 % (0.0-10.0); %Lymphocytes 12.7 % (21.0-51.0); %Monocytes 3.3 % (0.0-10.0); %Neutrophils 82.6 % (42.0-75.0); MDiff Complete? YES; Macrocytosis SLIGHT = 6-15 cells (100X) (0-5/hpf); Mean Platelet Volume 7.9 fL (7.4-10.4); Platelet Count 111 thou/uL (130-400); Platelet Morphology Comment Appears Decreased; Polychromasia SLIGHT = 2-3 cells (100X) (0-2/hpf); RBC Distribution Width 16.4 % (11.5-14.5)
[2019-04-24 09:02] LABS: Free T4 (Free Thyroxine) 0.76 ng/dL (0.70-1.48)
[2019-04-24 09:19] LABS: Thyroid Stimulating Hormone 62.3722 uIU/mL (0.35-4.94)
[2019-04-24] MEDS: Valproate Sodium 250 mg/5 ml UD Cup PO SCH (11:44)
--- NOTE | 2019-04-24 14:49 | PRG ---
DATE OF SERVICE: 04/24/2019 SUBJECTIVE: Ms. Flores is in no distress. She opens her eyes. Cooperative. She smiles. OBJECTIVE: VITAL SIGNS: Blood pressure is stable overnight. Heart rate in the 60s, respiratory rates in the teens. LUNGS: She has no rhonchi on chest exam. HEART: Regular rhythm. ABDOMEN: Soft. PLAN: I would recommend treating with p.o. Synthroid 0.5 mg. Her hemoglobin is 10.4, white count 3.2, platelets are 111,000. Electrolytes are . Her sister wants her to [facility] to the [facility] and I feel that is reasonable at this point. As mentioned before, I do not feel hypothyroidism is what led to her admission. More likely retained secretions, possibly even . She has been switched . Though, I suspect requirements for IV fluids related to intravascular volume depletion. Her p.o. intake is inadequate. We will have to encourage her to drink water. Job ID: [id number]
[2019-04-24 16:19] VITALS: TEMP 98.2
--- NOTE | 2019-04-24 17:39 | PRG ---
DATE OF SERVICE: 04/24/2019 SUBJECTIVE: Patient was seen and examined at bedside and overnight events noted. Patient denies any shortness of breath or chest pain or palpitation. No history of nausea or vomiting or diarrhea or fever or chills or cramps. OBJECTIVE: GENERAL: This is a well-built female, in no acute distress. VITAL SIGNS: Temperature 98.2. Heart rate 85. Respiratory rate 16. Blood pressure 152/107. HEENT: Atraumatic, normocephalic. Oral mucosa is moist NECK: Supple. CARDIOVASCULAR: S1, S2 heard. Rate and rhythm regular. RESPIRATORY: Clear to auscultation. GASTROINTESTINAL: Abdomen is soft. MUSCULOSKELETAL: No tenderness. No edema. DERMATOLOGIC: No skin rash. NEUROLOGIC: Alert and awake and oriented X3. No focal neurologic deficits. Moving all the extremities. PSYCHIATRIC: Mood and affect normal. LABORATORY DATA: Potassium 3.6, BUN is 18, and creatinine is 1.2. ASSESSMENT AND PLAN: 1. Acute kidney injury, better. 2. Edema, controlled. 3. History of hypertension. 4. History of hypothyroidism. Kidney function is much better, avoid nephrotoxins, we will follow. Job ID: [id number]
[2019-04-24] MEDS ORDERED: Cefdinir 300 MG CAP PO SCH (21:00)
[2019-04-25] MEDS ORDERED: Levothyroxine 150 MCG TAB PO SCH (06:00)
--- NOTE | 2019-04-25 11:45 | DIS ---
DATE OF ADMISSION: 04/21/2019 DATE OF DISCHARGE: 04/24/2019 DISCHARGE DISPOSITION: [facility] in [place]. PRIMARY DISCHARGE DIAGNOSES: Respiratory failure with hypoxia, likely due to retained secretions; myxedema, likely noncompliant with hypothyroid medications; relative cortisol deficiency on arrival, resolved; hypotension on arrival, resolved; history of Down syndrome; sensorineural deafness; poor functional status with the patient being wheelchair/bed bound; failure to thrive; and known history of hypothyroidism. PROCEDURES DONE DURING HOSPITALIZATION: Echo 2D Doppler done showed EF of 60% to 65%. Chest x-ray done showed possible opacity at the left base, nonspecific linear density in the left perihilar region, likely aspiration. Had soft tissue neck CAT scan done at [place] prior to arrival, which showed old fracture/dislocation of the left side of this upper cervical spine, this includes jumped and locked facets on the left at C4-C5 and old comminuted fractures of the left inferior articular facets of C4 and C5, narrowing of the nasopharyngeal airway by a combination of thickening of the longus colli along with capitis muscles and thickening of the uvula. Had abdominal and pelvic CAT scan done on the day of admission in [place], which showed no acute intraabdominal or pelvic abnormality. Blood cultures x2, no growth. Urine culture, no growth. Influenza A and B antigens were negative. H and H 10 and 31, platelet count 111, MCV 105, white count of 3.2. BUN 18, creatinine 1.0 on the day of discharge. Free T3 less than 1, free T4 less than 0.4, TSH was 60.76. Cortisol was 3.80. DISCHARGE MEDICATIONS: 1. Aspirin 81 mg p.o. daily. 2. Levothyroxine 175 mcg p.o. daily. 3. Multivitamin 1 tablet once daily. 4. MiraLax 17 g daily. 5. Ranitidine 150 mg daily. 6. Depakote as before. 7. Omnicef 300 mg twice daily for 3 days for bronchitis. ALLERGIES: ALLERGIC TO CLINDAMYCIN, MOTRIN, AND NAPROSYN. DISCHARGE PLAN: The patient to follow up with her primary care physician Dr. White in one week. She needs to follow up with Dr. Jordan in 2 to 3 weeks. BRIEF COURSE DURING HOSPITALIZATION: The patient initially was sent over from [facility] with complaints of metabolic encephalopathy and unresponsive to painful stimuli. She was also in respiratory distress. She had facial and neck edema on arrival. Initial TSH was 82. She was gently diuresed initial 24 hours. The patient also had hypotension and had to be placed on Levophed with IV Lasix drip for initial diuresis. She responded well to a Lasix drip with complete resolution of her facial edema and neck edema. The patient was then fluid resuscitated. She was placed on IV steroids first and then IV levothyroxine was given. She has responded well to these measures and she started to become more awake over the next 24 hours. She is essentially nonverbal at baseline, but the patient was trying to talk during her stay here. All through her stay, her sister was given complete updates. Do not attempt to resuscitate during her stay here. She was evaluated by Dr. Contreras for Pulmonology as well. She was placed back on Synthroid 175 mcg daily. All her home medications have been continued. She is tolerating 50% of her diet at the time of discharge. She is cleared for discharge by Dr. Contreras. A total of 35 minutes was spent on discharge plan. Please note, I have seen and examined the patient on the day of discharge. Job ID: [id number]
== END 2019-04-24 16:50 | DRG 80 ==
LOC: ERS 17:19 → CCU 20:14
PROVIDERS: ADMIT Internal Medicine; ATTEND Internal Medicine
DX: E03.5 Myxedema coma (principal); J96.01 Acute respiratory failure with hypoxia; G93.41 Metabolic encephalopathy; I50.32 Chronic diastolic (congestive) heart failure; N17.9 Acute kidney failure, unspecified; I13.0 Hypertensive heart and chronic kidney disease with heart failure and stage 1 through stage 4 chronic kidney disease, or unspecified chronic kidney disease; I24.8 Other forms of acute ischemic heart disease; E27.49 Other adrenocortical insufficiency; Z66 Do not resuscitate; R62.7 Adult failure to thrive; E87.70 Fluid overload, unspecified; I95.9 Hypotension, unspecified; M19.90 Unspecified osteoarthritis, unspecified site; N18.9 Chronic kidney disease, unspecified; G40.909 Epilepsy, unspecified, not intractable, without status epilepticus; F03.90 Unspecified dementia, unspecified severity, without behavioral disturbance, psychotic disturbance, mood disturbance, and anxiety; T38.1X5A Adverse effect of thyroid hormones and substitutes, initial encounter; H90.5 Unspecified sensorineural hearing loss; Q90.9 Down syndrome, unspecified; Z99.3 Dependence on wheelchair; Z91.14 Patient's other noncompliance with medication regimen; Z74.01 Bed confinement status
CPT/HCPCS: 36415; 71045; 80048; 81003; 81015; 82533; 82805; 83605; 84436; 84439; 84443; 84481; 85025; 87086; 87804; 90471; 90732; 93306; 94660; G0009; J0692; J1650; J1940; J2920; J3370; J3490; J7070; S0028